=== PATIENT | male | born 1985 | race Caucasian/White ===

== ENCOUNTER 2022-07-27 04:05 | Emergency (ER) | payer BC ==
[~2022-07-27] VITALS: Ht 160 cm; Wt 76.4 kg
[2022-07-27 06:13] LABS: BASOPHILS % (AUTO) 0.4 % (0-1); EOSINOPHILS # (AUTO) 0.2 X10'3 (0-0.9); EOSINOPHILS % (AUTO) 2.6 % (0-6); HEMATOCRIT 45.8 % (42.0-52.0); HEMOGLOBIN 15.4 g/dl (14.0-17.9); LYMPHOCYTES # (AUTO) 2.6 X10'3 (1.1-4.8); LYMPHOCYTES % (AUTO) 33.7 % (21-51); MEAN CORPUSCULAR HEMOGLOBIN 29.2 PG (27.0-31.0); MEAN CORPUSCULAR HGB CONC 33.7 g/dL (33.0-36.5); MEAN CORPUSCULAR VOLUME 86.8 FL (78-98); MEAN PLATELET VOLUME 7.5 FL (7.4-10.4); MONOCYTES # (AUTO) 0.6 X10'3 (0-0.9); MONOCYTES % (AUTO) 8.4 % (2-12); NEUTROPHILS # (AUTO) 4.2 X10'3 (1.8-7.7); NEUTROPHILS % (AUTO) 54.9 % (42-75); PLATELET COUNT 290 X10'3 (140-440); RED BLOOD COUNT 5.27 X10'6 (4.70-6.10); RED CELL DISTRIBUTION WIDTH 13.1 % (11.5-14.5); WHITE BLOOD COUNT 7.7 X10'3 (4.5-11.0)
[2022-07-27 06:20] LABS: ALANINE AMINOTRANSFERASE 42 U/L (12-78); ALBUMIN 3.9 G/DL (3.4-5.0); ALKALINE PHOSPHATASE 80 IU/L (46-116); ANION GAP 5 (8-16); ASPARTATE AMINO TRANSFERASE 20 U/L (10-37); BILIRUBIN,TOTAL 0.4 MG/DL (0.1-1.0); BLOOD UREA NITROGEN 18 MG/DL (7-18); BUN/CREATININE RATIO 18.6 (5.4-32.0); CALCIUM 9.3 MG/DL (8.5-10.1); CHLORIDE 107 MMOL/L (99-107); CREATININE 0.97 MG/DL (0.60-1.10); GLUCOSE 100 MG/DL (70-104); LIPASE 229 U/L (73-393); POTASSIUM 4.2 MMOL/L (3.5-5.1); SODIUM 138 MMOL/L (135-145); TOTAL CARBON DIOXIDE 26.5 MMOL/L (24-32); TOTAL PROTEIN 7.7 G/DL (6.4-8.2); eGFR 87 ML/MIN
[2022-07-27 07:23] LABS: CLARITY,URINE CLEAR (Clear); COLOR,URINE YELLOW (Yellow); GLUCOSE, URINE NEGATIVE (Neg); KETONES,URINE NEGATIVE (Neg); LEUKOCYTE ESTERASE ,URINE NEGATIVE (Neg); NITRITES, URINE NEGATIVE (Neg); OCCULT BLOOD,URINE NEGATIVE (Neg); PROTEIN,URINE NEGATIVE (Neg); UROBILINOGEN,URINE 0.2 E.U/dL (0.2-1.0)
[2022-07-27 07:28] LABS: UA COLLECTION TYPE CLN CATCH MIDSTREAM
[2022-07-27] MEDS ORDERED: normal saline 1000ML IV soln IVB ONE (07:30)
[2022-07-27] MEDS ORDERED: polyethylene glycol 3350 17gm powd pack PO ONE (08:10)
[2022-07-27 09:14] VITALS: BP 126/93
[2022-07-27] MEDS ORDERED: polyethylene glycol 3350 17gm powd pack PO SCH (21:00)
== END 2022-07-27 09:15 | disposition home or self-care (01) ==
LOC: ER 04:07
DX: K59.00 Constipation, unspecified (principal); R10.9 Unspecified abdominal pain
CPT/HCPCS: 36415; 74022; 80053; 81003; 83690; 85025; 96360; 99284; J7030

== ENCOUNTER 2023-11-02 06:33 | Emergency (ER) | payer BC ==
[~2023-11-02] VITALS: Ht 160 cm; Wt 74.2 kg
[2023-11-02 07:30] LABS: BASOPHILS % (AUTO) 0.4 % (0-1); EOSINOPHILS # (AUTO) 0.1 X10'3 (0-0.9); EOSINOPHILS % (AUTO) 1.8 % (0-6); HEMATOCRIT 44.8 % (42.0-52.0); HEMOGLOBIN 15.2 g/dl (14.0-17.9); LYMPHOCYTES # (AUTO) 1.9 X10'3 (1.1-4.8); LYMPHOCYTES % (AUTO) 27.7 % (21-51); MEAN CORPUSCULAR HEMOGLOBIN 29.5 PG (27.0-31.0); MEAN CORPUSCULAR HGB CONC 33.8 g/dL (33.0-36.5); MEAN CORPUSCULAR VOLUME 87.2 FL (78-98); MEAN PLATELET VOLUME 7.6 FL (7.4-10.4); MONOCYTES # (AUTO) 0.6 X10'3 (0-0.9); NEUTROPHILS # (AUTO) 4.2 X10'3 (1.8-7.7); NEUTROPHILS % (AUTO) 61.1 % (42-75); RED BLOOD COUNT 5.14 X10'6 (4.70-6.10); RED CELL DISTRIBUTION WIDTH 12.7 % (11.5-14.5); WHITE BLOOD COUNT 6.9 X10'3 (4.5-11.0)
[2023-11-02 07:33] LABS: PLATELET COUNT 300 X10'3 (140-440)
[2023-11-02 07:46] LABS: ALANINE AMINOTRANSFERASE 39 U/L (12-78); ALBUMIN 3.8 G/DL (3.4-5.0); ALKALINE PHOSPHATASE 68 IU/L (46-116); AMYLASE 39 U/L (25-115); ANION GAP 9 (8-16); ASPARTATE AMINO TRANSFERASE 22 U/L (10-37); BILIRUBIN,TOTAL 0.7 MG/DL (0.1-1.0); BLOOD UREA NITROGEN 8 MG/DL (7-18); BUN/CREATININE RATIO 8.1 (10.0-20.0); CALCIUM 8.8 MG/DL (8.5-10.1); CHLORIDE 104 MMOL/L (99-107); CREATININE 0.99 MG/DL (0.60-1.10); ETHANOL < 10 MG/DL (<10); GLUCOSE 82 MG/DL (70-104); LIPASE 67 U/L (16-77); POTASSIUM 3.7 MMOL/L (3.5-5.1); SODIUM 138 MMOL/L (135-145); TOTAL CARBON DIOXIDE 25.4 MMOL/L (24-32); TOTAL PROTEIN 7.8 G/DL (6.4-8.2); eCRCL 81 ML/MIN; eGFR 85 ML/MIN
[2023-11-02] MEDS: ketorolac tromethamine 15mg/ml inj. IV ONE (08:08)
[2023-11-02] MEDS: ondansetron/PF 4mg/2ml inj IV ONE (08:08)
[2023-11-02] MEDS: normal saline 1000ML IV soln IVB ONE (08:08)
[2023-11-02 08:21] VITALS: TEMP 98.4
[2023-11-02 08:35] LABS: BILIRUBIN,URINE NEGATIVE (Neg); CLARITY,URINE CLEAR (Clear); COLOR,URINE YELLOW (Yellow); GLUCOSE, URINE NEGATIVE (Neg); KETONES,URINE 40 mg/dl (Neg); LEUKOCYTE ESTERASE ,URINE NEGATIVE (Neg); NITRITES, URINE NEGATIVE (Neg); OCCULT BLOOD,URINE LARGE (Neg); PROTEIN,URINE NEGATIVE (Neg); UROBILINOGEN,URINE 0.2 E.U/dL (0.2-1.0)
[2023-11-02 08:37] LABS: UA COLLECTION TYPE CLN CATCH MIDSTREAM
[2023-11-02] MEDS: normal saline 1000ml 1,000 ML IV ONE (08:41)
[2023-11-02] MEDS: orphenadrine citrate 60mg/2ml inj. IM ONE (08:41)
[2023-11-02 08:45] LABS: BACTERIA,URINE FEW /HPF (Neg); RBC,URINE 20-50 /HPF (0-2); WBC,URINE 0-4 /HPF (0-4)
[2023-11-02 08:46] LABS: MUCUS STRANDS MANY /LPF (Neg); SQUAMOUS EPITHELIAL CELL,UR FEW /LPF (FEW)
[2023-11-02 08:52] LABS: URINE AMPHETAMINE SCREEN NEGATIVE (Neg); URINE BARBITUATE SCREEN NEGATIVE (Neg); URINE BENZODIAZEPINES SCREEN NEGATIVE (Neg); URINE CANNABINOID SCREEN NEGATIVE (Neg); URINE COCAINE SCREEN NEGATIVE (Neg); URINE METHADONE SCREEN NEGATIVE (Neg); URINE PHENCYCLIDINE SCREEN NEGATIVE (Neg)
[2023-11-02] MEDS ORDERED: sildenafil citrate 20mg tablet PO SCH (10:10)
[2023-11-02] MEDS: sildenafil citrate 20mg tablet PO ONE (10:34)
[2023-11-02] MEDS ORDERED: TADA5TAB2 PO (12:42)
[2023-11-02] MEDS ORDERED: ONDA4TAB12 PO (12:42)
[2023-11-02 13:05] VITALS: BP 102/78; PULSE 53; RESP 14; O2SAT 98
== END 2023-11-02 13:08 | disposition home or self-care (01) ==
LOC: ER 06:33
DX: N23 Unspecified renal colic (principal); R11.0 Nausea
CPT/HCPCS: 36415; 74176; 76700; 80053; 80305; 80320; 81001; 82150; 83690; 85025; 96361; 96374; 96375; 99285; J1885; J2405; J7030

== ENCOUNTER 2023-11-10 18:11 | Emergency (ER) | payer BC ==
[~2023-11-10] VITALS: Ht 160 cm; Wt 75.8 kg
[~2023-11-10 18:11] MED LIST: ONDA4TAB12 PO; TADA5TAB2 PO
[2023-11-10] MEDS ORDERED: ketorolac trometh. 30mg/ml inj. IM ONE (18:40)
[2023-11-10] MEDS ORDERED: HYDR-3965 PO (18:43)
[2023-11-10] MEDS ORDERED: FLO0.4C PO (18:43)
[2023-11-10] MEDS: ketorolac tromethamine 15mg/ml inj. IM ONE (19:02)
[2023-11-10] MEDS: HYDROcodone/acetaminophen 5mg/325mg tablet PO ONE (19:02)
[2023-11-10] MEDS: ondansetron 4mg rapidly disintigrating tab PO ONE (19:03)
[2023-11-10 19:31] VITALS: BP 141/78; PULSE 80; RESP 16; TEMP 98; O2SAT 97
== END 2023-11-10 19:33 | disposition home or self-care (01) ==
LOC: ER 18:12
DX: N20.0 Calculus of kidney (principal); I10 Essential (primary) hypertension; Z79.899 Other long term (current) drug therapy
CPT/HCPCS: 96372; 99283; J1885

== ENCOUNTER 2023-11-26 16:29 | Emergency (ER) | payer BC ==
[~2023-11-26] VITALS: Ht 160 cm; Wt 75.6 kg
[~2023-11-26 16:29] MED LIST changes: +FLO0.4C PO; +ONDA-243 PO; -ONDA4TAB12 PO
[2023-11-26 16:55] LABS: BASOPHILS # (AUTO) 0.1 X10'3 (0-0.2); BASOPHILS % (AUTO) 0.5 % (0-1); EOSINOPHILS # (AUTO) 0.2 X10'3 (0-0.9); EOSINOPHILS % (AUTO) 1.6 % (0-6); HEMOGLOBIN 14.2 g/dl (14.0-17.9); LYMPHOCYTES # (AUTO) 2.4 X10'3 (1.1-4.8); LYMPHOCYTES % (AUTO) 23.4 % (21-51); MEAN CORPUSCULAR HEMOGLOBIN 29.3 PG (27.0-31.0); MEAN CORPUSCULAR HGB CONC 33.8 g/dL (33.0-36.5); MEAN CORPUSCULAR VOLUME 86.9 FL (78-98); MEAN PLATELET VOLUME 7.2 FL (7.4-10.4); MONOCYTES # (AUTO) 0.7 X10'3 (0-0.9); MONOCYTES % (AUTO) 7.1 % (2-12); NEUTROPHILS % (AUTO) 67.4 % (42-75); PLATELET COUNT 305 X10'3 (140-440); RED BLOOD COUNT 4.84 X10'6 (4.70-6.10); RED CELL DISTRIBUTION WIDTH 13.2 % (11.5-14.5); WHITE BLOOD COUNT 10.4 X10'3 (4.5-11.0)
[2023-11-26 16:56] LABS: BILIRUBIN,URINE NEGATIVE (Neg); CLARITY,URINE CLEAR (Clear); COLOR,URINE YELLOW (Yellow); GLUCOSE, URINE NEGATIVE (Neg); KETONES,URINE 15 mg/dl (Neg); LEUKOCYTE ESTERASE ,URINE NEGATIVE (Neg); NITRITES, URINE NEGATIVE (Neg); OCCULT BLOOD,URINE MODERATE (Neg); PROTEIN,URINE TRACE mg/dl (Neg); UROBILINOGEN,URINE 0.2 E.U/dL (0.2-1.0)
[2023-11-26 17:03] LABS: UA COLLECTION TYPE CLN CATCH MIDSTREAM
[2023-11-26 17:05] LABS: BACTERIA,URINE NONE SEEN /HPF (Neg); MUCUS STRANDS FEW /LPF (Neg); RBC,URINE 20-50 /HPF (0-2); SQUAMOUS EPITHELIAL CELL,UR FEW /LPF (FEW); WBC,URINE 0-4 /HPF (0-4)
[2023-11-26 17:11] LABS: ALANINE AMINOTRANSFERASE 48 U/L (12-78); ALKALINE PHOSPHATASE 66 IU/L (46-116); ANION GAP 9 (8-16); ASPARTATE AMINO TRANSFERASE 16 U/L (10-37); BILIRUBIN,TOTAL 0.6 MG/DL (0.1-1.0); BLOOD UREA NITROGEN 16 MG/DL (7-18); BUN/CREATININE RATIO 13.6 (10.0-20.0); CALCIUM 9.2 MG/DL (8.5-10.1); CHLORIDE 101 MMOL/L (99-107); CREATININE 1.18 MG/DL (0.60-1.10); GLUCOSE 90 MG/DL (70-104); LIPASE 78 U/L (16-77); SODIUM 135 MMOL/L (135-145); TOTAL PROTEIN 7.9 G/DL (6.4-8.2); eCRCL 68 ML/MIN; eGFR 69 ML/MIN
[2023-11-26] MEDS ORDERED: ketorolac trometh. 30mg/ml inj. IV ONE ×2 (18:00→21:05)
[2023-11-26] MEDS: normal saline 1000ML IV soln IVB ONE (18:45)
[2023-11-26] MEDS: ketorolac tromethamine 15mg/ml inj. IV ONE ×2 (18:45→21:29)
[2023-11-26 18:46] VITALS: TEMP 97.7
[2023-11-26] MEDS ORDERED: HYDR-3973 PO (20:47)
[2023-11-26 21:30] VITALS: BP 139/90; PULSE 53; RESP 16; O2SAT 100
== END 2023-11-26 21:32 | disposition home or self-care (01) ==
LOC: ER 16:30
DX: N20.0 Calculus of kidney (principal); I10 Essential (primary) hypertension; Z72.89 Other problems related to lifestyle; Z98.890 Other specified postprocedural states; Z79.899 Other long term (current) drug therapy
CPT/HCPCS: 36415; 74176; 80053; 81001; 83690; 85025; 96361; 96374; 96376; 99285; J1885; J7030

== ENCOUNTER 2023-12-22 01:09 | Emergency (ER) | payer BC ==
[~2023-12-22] VITALS: Ht 160 cm; Wt 75.0 kg
[~2023-12-22 01:09] MED LIST changes: -FLO0.4C PO; +HYDR-3973 PO; -TADA5TAB2 PO
[2023-12-22 01:11] VITALS: TEMP 98.6
[2023-12-22 01:34] LABS: BILIRUBIN,URINE NEGATIVE (Neg); CLARITY,URINE CLEAR (Clear); COLOR,URINE STRAW (Yellow); GLUCOSE, URINE NEGATIVE (Neg); KETONES,URINE NEGATIVE (Neg); LEUKOCYTE ESTERASE ,URINE NEGATIVE (Neg); NITRITES, URINE NEGATIVE (Neg); OCCULT BLOOD,URINE MODERATE (Neg); PROTEIN,URINE NEGATIVE (Neg); UROBILINOGEN,URINE 0.2 E.U/dL (0.2-1.0)
[2023-12-22 01:35] LABS: BASOPHILS # (AUTO) 0.1 X10'3 (0-0.2); BASOPHILS % (AUTO) 0.5 % (0-1); EOSINOPHILS # (AUTO) 0.2 X10'3 (0-0.9); EOSINOPHILS % (AUTO) 1.8 % (0-6); HEMATOCRIT 43.5 % (42.0-52.0); HEMOGLOBIN 14.5 g/dl (14.0-17.9); LYMPHOCYTES # (AUTO) 3.7 X10'3 (1.1-4.8); LYMPHOCYTES % (AUTO) 32.5 % (21-51); MEAN CORPUSCULAR HEMOGLOBIN 28.9 PG (27.0-31.0); MEAN CORPUSCULAR HGB CONC 33.5 g/dL (33.0-36.5); MEAN CORPUSCULAR VOLUME 86.4 FL (78-98); MEAN PLATELET VOLUME 7.6 FL (7.4-10.4); MONOCYTES % (AUTO) 8.4 % (2-12); NEUTROPHILS # (AUTO) 6.5 X10'3 (1.8-7.7); NEUTROPHILS % (AUTO) 56.8 % (42-75); PLATELET COUNT 293 X10'3 (140-440); RED BLOOD COUNT 5.03 X10'6 (4.70-6.10); RED CELL DISTRIBUTION WIDTH 12.9 % (11.5-14.5); WHITE BLOOD COUNT 11.4 X10'3 (4.5-11.0)
[2023-12-22] MEDS ORDERED: ondansetron/PF 4mg/2ml inj IV ONE (01:40)
[2023-12-22] MEDS ORDERED: ketorolac tromethamine 15mg/ml inj. IV ONE (01:40)
[2023-12-22 01:41] LABS: UA COLLECTION TYPE CLN CATCH MIDSTREAM
[2023-12-22 01:42] LABS: SQUAMOUS EPITHELIAL CELL,UR FEW /LPF (FEW)
[2023-12-22 01:43] LABS: BACTERIA,URINE NONE SEEN /HPF (Neg); RBC,URINE 0-2 /HPF (0-2); WBC,URINE 0-4 /HPF (0-4)
[2023-12-22 01:44] LABS: ALANINE AMINOTRANSFERASE 39 U/L (12-78); ALBUMIN 3.8 G/DL (3.4-5.0); ALKALINE PHOSPHATASE 69 IU/L (46-116); ANION GAP 8 (8-16); ASPARTATE AMINO TRANSFERASE 20 U/L (10-37); BILIRUBIN,TOTAL 0.4 MG/DL (0.1-1.0); BLOOD UREA NITROGEN 21 MG/DL (7-18); BUN/CREATININE RATIO 16.8 (10.0-20.0); CALCIUM 9.2 MG/DL (8.5-10.1); CHLORIDE 102 MMOL/L (99-107); CREATININE 1.25 MG/DL (0.60-1.10); GLUCOSE 92 MG/DL (70-104); LIPASE 86 U/L (16-77); POTASSIUM 3.6 MMOL/L (3.5-5.1); SODIUM 137 MMOL/L (135-145); TOTAL CARBON DIOXIDE 27.4 MMOL/L (24-32); TOTAL PROTEIN 7.7 G/DL (6.4-8.2); eCRCL 64 ML/MIN; eGFR 64 ML/MIN
[2023-12-22] MEDS: morphine 4 MG/ML inj SYRINge IV ONE ×2 (01:48→03:01)
[2023-12-22] MEDS: normal saline 1000ML IV soln IVB ONE (01:49)
[2023-12-22] MEDS: ondansetron 4mg rapidly disintigrating tab PO ONE (02:01)
[2023-12-22] MEDS: ketorolac trometh. 30mg/ml inj. IM ONE (02:02)
[2023-12-22 04:04] VITALS: RESP 16; O2SAT 99
[2023-12-22] MEDS ORDERED: HYDR-3973 PO (04:33)
[2023-12-22 04:35] VITALS: BP 139/96; PULSE 70
== END 2023-12-22 04:45 | disposition home or self-care (01) ==
LOC: ER 01:10
DX: N23 Unspecified renal colic (principal); I10 Essential (primary) hypertension; Z98.890 Other specified postprocedural states; Z72.89 Other problems related to lifestyle
CPT/HCPCS: 36415; 74176; 80053; 81001; 83690; 85025; 96372; 96374; 99285; J1885; J2270; J7030

== ENCOUNTER 2024-01-11 15:40 | Emergency (ER) | payer BC ==
[~2024-01-11] VITALS: Ht 167.6 cm; Wt 70.0 kg
[2024-01-11] MEDS: normal saline 1000ML IV soln IVB ONE ×2 (16:46→17:42)
[2024-01-11] MEDS: ketorolac trometh 15mg/ml vial 15 MG/ML ML IV ONE (16:47)
[2024-01-11 17:00] LABS: BASOPHILS % (AUTO) 0.3 % (0-1); EOSINOPHILS # (AUTO) 0.1 X10'3 (0-0.9); HEMOGLOBIN 14.6 g/dl (14.0-17.9); LYMPHOCYTES # (AUTO) 2.2 X10'3 (1.1-4.8); LYMPHOCYTES % (AUTO) 17.7 % (21-51); MEAN CORPUSCULAR HEMOGLOBIN 28.8 PG (27.0-31.0); MEAN CORPUSCULAR HGB CONC 33.3 g/dL (33.0-36.5); MEAN CORPUSCULAR VOLUME 86.7 FL (78-98); MEAN PLATELET VOLUME 7.4 FL (7.4-10.4); MONOCYTES # (AUTO) 0.8 X10'3 (0-0.9); MONOCYTES % (AUTO) 6.4 % (2-12); NEUTROPHILS # (AUTO) 9.2 X10'3 (1.8-7.7); NEUTROPHILS % (AUTO) 74.6 % (42-75); PLATELET COUNT 327 X10'3 (140-440); RED BLOOD COUNT 5.08 X10'6 (4.70-6.10); RED CELL DISTRIBUTION WIDTH 12.9 % (11.5-14.5); WHITE BLOOD COUNT 12.3 X10'3 (4.5-11.0)
[2024-01-11] MEDS: sildenafil citrate 20mg tablet PO STA (17:12)
[2024-01-11 17:22] LABS: ALBUMIN 3.8 G/DL (3.4-5.0); ANION GAP 8 (8-16); BLOOD UREA NITROGEN 14 MG/DL (7-18); BUN/CREATININE RATIO 13.2 (10.0-20.0); CALCIUM 9.4 MG/DL (8.5-10.1); CHLORIDE 100 MMOL/L (99-107); CREATININE 1.06 MG/DL (0.60-1.10); GLUCOSE 89 MG/DL (70-104); MAGNESIUM 1.7 MG/DL (1.5-2.4); POTASSIUM 3.8 MMOL/L (3.5-5.1); SODIUM 134 MMOL/L (135-145); TOTAL CARBON DIOXIDE 25.6 MMOL/L (24-32); eCRCL 84 ML/MIN; eGFR 78 ML/MIN
[2024-01-11] MEDS: meperidine/PF 50mg/ml syringe IV ONE (17:36)
[2024-01-11] MEDS: LIDOcaine 2% (20 mg/ml) 5ml cardiac syringe IV STA (18:05)
[2024-01-11] MEDS: COMMUNICATION ORDER 1 EA MISC MC ONE (18:06)
[2024-01-11 18:27] LABS: BILIRUBIN,URINE NEGATIVE (Neg); CLARITY,URINE CLEAR (Clear); COLOR,URINE YELLOW (Yellow); GLUCOSE, URINE NEGATIVE (Neg); KETONES,URINE TRACE mg/dl (Neg); LEUKOCYTE ESTERASE ,URINE NEGATIVE (Neg); NITRITES, URINE NEGATIVE (Neg); OCCULT BLOOD,URINE LARGE (Neg); PROTEIN,URINE NEGATIVE (Neg); UROBILINOGEN,URINE 0.2 E.U/dL (0.2-1.0)
[2024-01-11 18:29] LABS: UA COLLECTION TYPE VOIDED
[2024-01-11 18:33] LABS: BACTERIA,URINE FEW /HPF (Neg); RBC,URINE 20-50 /HPF (0-2); SQUAMOUS EPITHELIAL CELL,UR NONE SEEN /LPF (FEW); WBC,URINE 0-4 /HPF (0-4)
[2024-01-11 18:53] VITALS: TEMP 98.1
[2024-01-11] MEDS: HYDROcodone/acetaminophen 10/325mg tab PO ONE (19:58)
[2024-01-11 20:03] VITALS: BP 144/88; PULSE 80; RESP 16; O2SAT 92
== END 2024-01-11 20:12 | disposition home or self-care (01) ==
LOC: ER 15:40
DX: U07.1 COVID-19 (principal); N23 Unspecified renal colic; I10 Essential (primary) hypertension; Z79.899 Other long term (current) drug therapy
CPT/HCPCS: 36415; 74018; 76770; 80048; 81001; 83735; 85025; 87811; 93005; 96361; 96374; 96375; 99285; J1885; J2175; J7030; J3490

== ENCOUNTER 2024-10-02 12:41 | Emergency (ER) | payer BC ==
[~2024-10-02] VITALS: Ht 160 cm; Wt 78.3 kg
[2024-10-02 12:45] VITALS: TEMP 97.9
[2024-10-02] MEDS: proparacaine 0.5% ophthalmic drops 15ml EACHEYE STA (13:17)
--- NOTE | 2024-10-02 15:16 | Physician Documentation ---
History of Present Illness ~ Chief Complaint: Foreign body Stated Complaint: EYE PAIN Time Seen by MD: 12:58 Primary Medical Doctor: RYAN MELISSA Patient is seen today with complaints of foreign body sensation in his left eye just prior to arrival. 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 Patient denies any vision changes in his left eye. He has no other concern or complaint at this time. Medication Reconciliation Allergies: Coded Allergies: No Known Allergies (Unverified , 01/11/24) Scheduled PRN Hydrocodone Bit/Acetaminophen (Hydrocodone-Apap 10-325 Tablet), 1 TABLET PO Q8H PRN for pain ONDANSETRON ODT 4mg tablet (Ondansetron Odt), 1 TAB PO TID PRN for nausea/vomiting Past Medical History Past Medical History: Hypertension, Kidney Stones Past Surgical History: no surgical history, orthopedic surgeries Alcohol Use: Occasionally Drug Use: none Lives In: Home Review of Systems Constitutional: Denies: chills, fever, weakness Eyes: Denies: pain, blurred vision ENT: Denies: ear pain, nose pain, throat pain, mouth pain Respiratory: Denies: cough, shortness of breath Cardiovascular: Denies: chest pain, palpitations Gastrointestinal: Denies: abdominal pain, nausea, vomiting Genitourinary: Denies: burning, dysuria Male Genitalia: Denies: penile discharge, testicular pain Neurological: Denies: headache, dizziness Musculoskeletal: Denies: pain, swelling Integumentary: Denies: rash, lesions Allergic/Immunologic: Denies: hives, itching Hematologic/Lymphatic: Denies: no symptoms reported Psychiatric: Denies: depression, anxiety Physical Exam Vital Signs: Temperature: 97.9, Heart Rate: 87, Respiratory Rate: 15, BP: 132/90, Pulse Oximetry: 97, Weight: 78.300 Oxygen Flow Rate: 0 Physical Exam General: Awake and Alert, no acute distress. HEENT: Patient on exam with Wood's lamp and fluorescein stain does have 2 mm corneal abrasion at the 6 o'clock position with fluorescein up take. Patient has no purulent drainage. Conjunctiva within normal limits, Sclera is injected. Mucus Membranes moist. Neck: Supple without masses and tenderness. Resp: Unlabored. Lungs clear to auscultation bilaterally. Heart: Regular Rate and rhythm, normal S1 and S2 without murmur, rub or gallop. Extremities: No cyanosis,clubbing or edema. Skin: Warm and Dry. Progress Results/Orders Results/Orders Completed Orders - LESLIE WALTON Proparacaine Ophth Solution (Alcaine Oph (10/02/24 13:17) Vital Signs 10/02/24 12:45 Temp 97.9 Pulse 87 Resp 15 B/P (MAP) 132/90 Pulse Ox 97 O2 Flow Rate 0 Medical Decision Making Findings Patient is seen today with complaints of foreign body sensation in his left eye just prior to arrival. 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 Patient denies any vision changes in his left eye. He has no other concern or complaint at this time. Fluorescein stain did show no sign of foreign body but patient did have corneal abrasion at 6 o'clock position of the cornea of the left eye. Patient given prescription for antibiotic eyedrops with steroid for left eye to be applied as directed. Patient will follow up with electrician office as soon as possible for further eval you patient and treatment if no better in two days. Return to ED with any worsening, concerning or changing symptoms. Shared decision-making utilized with the patient today. Departure Disposition: HOME / SELF CARE / HOMELESS Impression: Primary Impression: Cornea abrasion Qualified Codes: S05.02XA - Injury of conjunctiva and corneal abrasion with out foreign body, left eye, initial encounter Condition: Improved Discharge Instructions: Corneal Abrasion, Toxy-[id number] Additional Instructions: Fluorescein stain did show no sign of foreign body but patient did have corneal abrasion at 6 o'clock position of the cornea of the left eye. Patient given prescription for antibiotic eyedrops with steroid for left eye to be applied as directed. Patient will follow up with electrician office as soon as possible for further eval you patient and treatment if no better in two days. Return to ED with any worsening, concerning or changing symptoms. Shared decision-making utilized with the patient today. Referrals: NO PRIMARY CARE PROVIDER (PCP) Prescriptions Neomy Sulf/Polymyx B Sulf/Hc (Gqtqttxg-Abmf-Iq Eye Drops) 3.5 Mg-10,000 Unit-10 Mg/Ml Drops.susp 2 DROP LEFTEYE Q6H for corneal abrasion for 5 Days, #10 ML 0 Refills Prov: LESLIE WALTON PAC 10/02/24 Signature Scribe Signature: No scribe Attestation: No scribe LESLIE WALTON PAC October 02, 2024 15:16
[2024-10-02] MEDS ORDERED: COROS LEFTEYE (15:19)
[2024-10-02 15:28] VITALS: BP 132/82; PULSE 90; RESP 18; O2SAT 99
== END 2024-10-02 15:31 | disposition home or self-care (01) ==
LOC: ER 12:42
DX: S05.02XA Injury of conjunctiva and corneal abrasion without foreign body, left eye, initial encounter (principal); I10 Essential (primary) hypertension; X58.XXXA Exposure to other specified factors, initial encounter; Y93.01 Activity, walking, marching and hiking; Y92.89 Other specified places as the place of occurrence of the external cause; Y99.8 Other external cause status
CPT/HCPCS: 99283